=== PATIENT | female | born 2000 | race Caucasian/White ===

== ENCOUNTER 2019-11-08 10:13 | Inpatient (IN) | payer MEDICAID ==
[~2019-11-08] VITALS: Ht 165.1 cm; Wt 97.7 kg
[2019-11-09] VITALS (53 sets, daily range): BP systolic 107–160; BP diastolic 56–100; PULSE 57–100; TEMP 97.6–98.1
--- NOTE | 2019-11-09 07:45 | NUR ---
0745- Pt. ambulatory to the unit with support person/FOB by her side. Orientated to room and changed into clean gown. Pt. reports GFM, no LOF, no blood and no ctx. Pee specimen collected. 0756- EFM and TOCO on and tracing. Vitals taken, assessment completed, consents signed and plan for the day discussed. IV started and fluids running. Audible movement noted.
[2019-11-09] MEDS ORDERED: PRENATAL TABLET PO (08:23)
[2019-11-09] MEDS ORDERED: PEPCID 20MG TAB20 MG PO (08:23)
[2019-11-09 08:54] LABS: BASO % 0.3 % (0.0-2.0); EOS # 0.1 (0.0-0.7); GRAN # 7.2 (1.4-6.5); GRAN % 67.3 % (42.2-75.2); HEMATOCRIT 39.2 % (35.0-45.0); HEMOGLOBIN 12.9 g/dl (12.0-15.0); LYMPH # 2.3 (1.2-3.4); LYMPH % 21.2 % (20.0-51.0); MEAN CELL VOLUME 88 fl (80.0-95.0); MEAN CORPUSCULAR HEMOGLOBIN 29 pg (26.0-32.0); MEAN CORPUSCULAR HGB CONC 33 g/dl (33.0-37.0); MEAN PLATELET VOLUME 12.5 fl (7.4-10.4); MONO % 9.4 % (1.7-9.3); PLATELET COUNT 197 K/mm3 (130-400); RED BLOOD COUNT 4.46 M/mm3 (4.10-5.30); REDCELL DISTRIBUTION WIDTH-CV 14.2 % (11.5-14.5)
[2019-11-09 08:58] LABS: TRICYCLIC ANTIDEPRESS URINE NEGATIVE
--- NOTE | 2019-11-09 14:09 | NUR ---
1343- PT AND ROOM PREPPED FOR EPIDURAL. MOM SITTING UP ON SIDE OF BED. RN REMAINS AT BEDSIDE. 1345- MATERNAL O2 SAT ON AND TRACING. 1347- ANN YOUNG TO BEDSIDE FOR EPIDURAL PLACEMENT. PROCEDURE EXPLAINED AND QUESTIONS ANSWERED. EFM AND TOCO TRACING INTERMITTENTLY DUE TO MATERNAL POSITION. RN REMAINS AT BEDSIDE CONTINUALLY ADJUSTING EFM. 1357- TEST DOSE, SEE ANESTHESIA RECORD. 1404- PT REPOSITIONED TO WL IN BED, EFM AND TOCO ADJUSTED AND TRACING. RN REMAINS AT BEDSIDE.
--- NOTE | 2019-11-09 17:15 | NUR ---
1701- DR. TEJADA TO BEDSIDE. ADVISED TO PUT PITOCIN AT 10 INSTEAD OF SHUTTING IT COMPLETELY OFF. 1703- PITOCIN TURNED BACK ON AND PLACED AT 10. 1704- DR. TERRELL EDWARDS, -. RN REMAINS AT BEDSIDE AND REPOSITIONED PATIENT TO RL WITH THE PEANUT BALL.
--- NOTE | 2019-11-09 17:15 | NUR ---
MINIMAL VARIABILITY NOTED ON HEART STRIP WITH EARLY DECELERATIONS NOTED FOR ABOUT 20 MINUTES EVEN AFTER REPOSITIONING THE PATIENT. CONSULTED Junaid MENDEZ AND SHE ADVISED TO TURN OFF PITOCIN AND GIVE OXYGEN TO MOM AND SEE IF THE FHR VARIABILITY INCREASED TO MODERATE. 1650- O2 PLACED ON MOM AT 10L AND PITOCIN TURNED OFF. RN REMAINS AT BEDSIDE.
--- NOTE | 2019-11-09 18:45 | NUR ---
DIFFICULTY TRACING CONTRACTIONS, TOCO ADJUSTED.
--- NOTE | 2019-11-09 18:54 | NUR ---
PT PUSHING INTERMITTENTLY WITH THIS NURSE AT 1854.
--- NOTE | 2019-11-09 19:15 | NUR ---
DR TEJADA IN ROOM FOR DELIVERY.
--- NOTE | 2019-11-09 19:54 | NUR ---
1949- SPONTANEOUS VAGINAL DELIVERY OF VIABLE BABY GIRL. BABY TO MOTHER'S ABDOMEN, CORD CLAMPED BY DR. TEJADA, CUT BY FOB. BABY CARES ASSUMED BY GUY PRIETO. 1953- SPONTANEOUS DELIVERY OF INTACT PLACENTA. PLACENTA TO BE SENT TO PATHOLOGY DUE TO IUGR. PITOCIN STARTED AT 333ML/HR PER PROTOCOL. DR TEJADA BEGINS REPAIR OF 2ND DEGREE LACERATION.
--- NOTE | 2019-11-09 23:00 | NUR ---
PT UP TO BATHROOM, UNABLE TO VOID AT THIS TIME. ASSISTED WITH PERICARE, ICE PACK, PAD, AND MESH UNDERWEAR APPLIED. PT TO VIA WHEELCHAIR, ORIENTED TO .
[2019-11-10 01:15] VITALS: BP 100/47; PULSE 80; TEMP 98.8
--- NOTE | 2019-11-10 01:15 | NUR ---
PT UP TO BATHROOM, ABLE TO VOID 250ML, FIST SIZE CLOT OUT WHILE PT ON TOILET. PERICARE PERFORMED. PT RETURNED TO BED, FUNDAL CHECK PERFORMED AND WNL, IMMEDIATELY FOLLOWING FUNDAL CHECK PT STATES FEELING A GUSH, PAD CHECKED AND NOW HAS APPOXIMATELY 40% COVERED. GUY PEREZ IN ROOM TO PERFORM FUNDAL CHECK AND EXPRESSES AND ADDITIONAL QUARTER SIZED CLOT. WILL NOTIFY DR. TEJADA.
--- NOTE | 2019-11-10 01:57 | NUR ---
PO METHERGINE 0.2MG GIVEN PER DR. TEJADA.
--- NOTE | 2019-11-10 02:30 | NUR ---
FUNDAL CHECK PERFORMED, [place]UT SIZED CLOT EXPRESSED WITH SMALL AMOUNT OF LOCHIA. WILL REASSESS IN 45 MINUTES.
--- NOTE | 2019-11-10 03:15 | NUR ---
FUNDAL CHECK PERFORMED, BLEEDING WNL.
[2019-11-10 07:15] LABS: HEMOGLOBIN 11.7 g/dl (12.0-15.0)
[2019-11-10 07:24] VITALS: BP 109/78; PULSE 84; TEMP 97.7
[2019-11-10] MEDS ORDERED: IBU600 MG PO (09:15)
[2019-11-10 13:30] VITALS: BP 125/69; PULSE 77; TEMP 97.7
--- NOTE | 2019-11-10 13:55 | NUR ---
Wool Washer responded to a rn social services consult for the patient. Per nurse there is no history of drug use. The patient tested negative at admission. The patient's partner recently got out of assisted. JOEY met with the patient and FOB. The patient's nurse was in the room too. They live in [place]. The patient has all the supplies they need. The FOB is and will be involved. The patient states she has her parents and many siblings for support. In the patient's chart shows a history of depression. JOEY addressed this matter. The patient states she was depressed during middle school. She saw a talk therapist and was on medications. As she transitioned to high school she no longer need a therapist or medications. The patient's states that Dr. Hawthorne informed her that if she felt she was getting depressed he could contact him. JOEY provided local mental health resources list and information for Parents as Teacher in [place]. This is the patient's first child. She states she will sign up for WIC soon. JOEY collaborated the above information with the patient's nurse.
[2019-11-10 17:00] VITALS: BP 127/67; PULSE 78; TEMP 97.9
[2019-11-10 19:45] VITALS: BP 124/68; PULSE 70; TEMP 98.2
== END 2019-11-10 21:40 | disposition home or self-care (01) | DRG 806 ==
LOC: LDR 11-09 07:39 → OB 11-09 07:39 → LDR 11-09 10:13 → OB 11-09 23:15
PROVIDERS: ADMIT Obstetrics & Gynecology
PROC: 10E0XZZ Delivery of Products of Conception, External Approach (ICD-10-PCS; principal; 2019-11-09)
PROC: 0KQM0ZZ Repair Perineum Muscle, Open Approach (ICD-10-PCS; 2019-11-09)
PROC: 10907ZC Drainage of Amniotic Fluid, Therapeutic from Products of Conception, Via Natural or Artificial Opening (ICD-10-PCS; 2019-11-09)
DX: O36.5930 Maternal care for other known or suspected poor fetal growth, third trimester, not applicable or unspecified (principal); O99.354 Diseases of the nervous system complicating childbirth; Z37.0 Single live birth; O70.1 Second degree perineal laceration during delivery; Z3A.39 39 weeks gestation of pregnancy; O99.62 Diseases of the digestive system complicating childbirth; O99.344 Other mental disorders complicating childbirth; F32.9 Major depressive disorder, single episode, unspecified; K21.9 Gastro-esophageal reflux disease without esophagitis; G43.909 Migraine, unspecified, not intractable, without status migrainosus
CPT/HCPCS: J2405; J2590; J7120